=== PATIENT | female | born 1980 | race Caucasian/White ===

== ENCOUNTER 2025-04-27 11:09 | Day surgery (SDC) | payer OTHER ==
[~2025-04-27] VITALS: Ht 167.6 cm; Wt 62.5 kg
[~2025-04-27 11:09] MED LIST: FAMO20TA PO; OMEP40CA4 PO
[2025-04-27] MEDS ORDERED: LIDOCAINE 2% 100 MG/5 ML SDV (FOR ANES.) As Ordered ONE (12:07)
[2025-04-27 14:06] VITALS: TEMP 97.2
[2025-04-27 14:24] VITALS: BP 123/62; O2SAT 100
== END 2025-04-27 14:30 | disposition home or self-care (01) ==
LOC: M OPP 11:09
PROVIDERS: ATTEND Surgery
DX: D12.6 Benign neoplasm of colon, unspecified (principal); K63.89 Other specified diseases of intestine; K62.89 Other specified diseases of anus and rectum; K64.2 Third degree hemorrhoids; R19.7 Diarrhea, unspecified; R13.10 Dysphagia, unspecified; Z98.84 Bariatric surgery status; Z91.018 Allergy to other foods; Z79.899 Other long term (current) drug therapy; F17.210 Nicotine dependence, cigarettes, uncomplicated
CPT/HCPCS: 43235; 45380; 45385; 88305; J3010